=== PATIENT | female | born 1935 | race Caucasian/White ===

== ENCOUNTER 2019-04-22 15:58 | Emergency (ER) | payer OTHER ==
[~2019-04-22] VITALS: Ht 160 cm; Wt 51.6 kg
[~2019-04-22 15:58] MED LIST: AZIT500T PO; BIOT5TAB PO; BUDE10.22 INH; CHOL100012 PO; CRAN1CAP PO; DORZ10DR28 OP; HYDR25TA6 PO; LACT1CAP71 PO; METF500T27 PO; METO50TA82 PO; MICRO-K PO; MV-M1TAB3 PO
[2019-04-22 16:49] VITALS: BP 148/75
[2019-04-22 17:18] LABS: RAPID INFLUENZA A Negative (Negative); RAPID INFLUENZA B Negative (Negative)
== END 2019-04-22 17:50 | disposition home or self-care (01) ==
LOC: ED 17:45
DX: J18.0 Bronchopneumonia, unspecified organism (principal); I10 Essential (primary) hypertension; J44.9 Chronic obstructive pulmonary disease, unspecified; E11.9 Type 2 diabetes mellitus without complications
CPT/HCPCS: 71046; 87081; 87400; 87880; 99284

== ENCOUNTER 2020-06-13 13:27 | Emergency (ER) | payer OTHER ==
[2020-06-13] MEDS ORDERED: SODIUM CHLORIDE FLUSH 10ML SYR IVF ONE (14:00)
[2020-06-13 14:34] LABS: MICROSCOPIC NOT IND
[2020-06-13 14:40] LABS: BASOPHILS % (AUTO) 1 % (0-1); EOSINOPHILS % (AUTO) 5 % (1-7); LYMPHOCYTES % (AUTO) 19 % (22-44); MEAN CORPUSCULAR HEMOGLOBIN 32.7 pg (27.0-34.8); MEAN CORPUSCULAR HGB CONC 34.4 g/dL (32.4-35.8); MEAN PLATELET VOLUME 7.4 fL (7.4-10.4); MONOCYTES % (AUTO) 10 % (2-9); NEUTROPHILS % (AUTO) 65 % (42-75); PLATELET COUNT 270 x10^3/uL (130-400); RED BLOOD COUNT 3.98 x10^6/uL (3.82-5.3); RED CELL DISTRIBUTION WIDTH 13.4 % (9.6-15.2)
[2020-06-13 14:46] LABS: ALANINE AMINOTRANSFERASE 22 U/L (12-78); ALBUMIN 3.9 g/dL (3.4-5.0); ANION GAP 5 mmol/L (5-15); CALCIUM 8.9 mg/dL (8.5-10.1); CHLORIDE 94 mmol/L (98-107); CREATININE 0.79 mg/dL (0.55-1.02)
[2020-06-13 14:48] LABS: ALKALINE PHOSPHATASE 80 U/L (45-117); BILIRUBIN,TOTAL 0.3 mg/dL (0.2-1.0); TOTAL PROTEIN 8.5 g/dL (6.4-8.2)
[2020-06-13 14:50] LABS: MD NO
[2020-06-13] MEDS ORDERED: SODIUM CHLORIDE 0.9% 1,000 ML IV STA (14:53)
--- NOTE | 2020-06-13 15:13 | NUR ---
PT OFF THE FLOOR TO CT
--- NOTE | 2020-06-13 15:28 | NUR ---
UNABLE TO DO CT SCAN ON PT TIANNA BROWN. 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 TALKED ER BOAT MASTER AT 15:25.
[2020-06-13] MEDS ORDERED: SODIUM CHLORIDE 0.9% 1,000 ML IV SCH (15:30)
[2020-06-13 17:23] VITALS: BP 150/60
--- NOTE | 2020-06-13 17:39 | NUR ---
PT REC'VD DISCHARGE INSTRUCTIONS AND EDUCATION. PT HAD NO FURTHER QUESTIONS. PT AMBULATED TO DISCHARGE AREA, STEADY GAIT.
== END 2020-06-13 17:41 | disposition home or self-care (01) ==
LOC: ED 14:54
DX: R10.32 Left lower quadrant pain (principal); R11.0 Nausea; R35.0 Frequency of micturition; I10 Essential (primary) hypertension; E11.9 Type 2 diabetes mellitus without complications; J44.9 Chronic obstructive pulmonary disease, unspecified; M19.90 Unspecified osteoarthritis, unspecified site
CPT/HCPCS: 36415; 80053; 81003; 83690; 85025; 96360; 96361; 99283; J7030

== ENCOUNTER 2020-06-27 11:32 | Emergency (ER) | payer OTHER ==
[~2020-06-27] VITALS: Ht 160 cm; Wt 57.1 kg
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
--- NOTE | 2020-06-27 12:01 | NUR ---
PT TAKEN TO BATHROOM FOR U/A
--- NOTE | 2020-06-27 12:42 | NUR ---
BLADDER SCANNER SHOWED 181 ML
[2020-06-27 12:49] LABS: BASOPHILS % (AUTO) 1 % (0-1); EOSINOPHILS % (AUTO) 2 % (1-7); LYMPHOCYTES % (AUTO) 13 % (22-44); MEAN CORPUSCULAR HEMOGLOBIN 32.9 pg (27.0-34.8); MEAN CORPUSCULAR HGB CONC 34.4 g/dL (32.4-35.8); MONOCYTES % (AUTO) 9 % (2-9); NEUTROPHILS % (AUTO) 75 % (42-75); PLATELET COUNT 235 x10^3/uL (130-400); RED BLOOD COUNT 3.73 x10^6/uL (3.82-5.3); RED CELL DISTRIBUTION WIDTH 13.6 % (9.6-15.2)
[2020-06-27 12:57] LABS: MD NO
[2020-06-27 12:59] LABS: ALANINE AMINOTRANSFERASE 19 U/L (12-78); ALBUMIN 3.6 g/dL (3.4-5.0); ANION GAP 4 mmol/L (5-15); CHLORIDE 96 mmol/L (98-107); CREATININE 0.61 mg/dL (0.55-1.02)
[2020-06-27 13:01] LABS: ALKALINE PHOSPHATASE 65 U/L (45-117); BILIRUBIN,TOTAL 0.4 mg/dL (0.2-1.0); TOTAL PROTEIN 7.7 g/dL (6.4-8.2)
--- NOTE | 2020-06-27 13:09 | NUR ---
PT BACK FROM IMAGING.
--- NOTE | 2020-06-27 13:22 | NUR ---
STRAIGHT CATHETER IN PLACE FOR 181 ML PVR PER MD ORDER
--- NOTE | 2020-06-27 13:43 | NUR ---
300 ML FROM STRAIGHT CATHETER. PT TOLERATED WELL
[2020-06-27 13:48] LABS: MICROSCOPIC INDICATED
[2020-06-27] MEDS ORDERED: FOSFOMYCIN 3 GM PACKET PO ONE (14:00)
[2020-06-27 14:13] VITALS: BP 183/63
== END 2020-06-27 15:02 | disposition home or self-care (01) ==
LOC: ED 14:45
DX: B02.29 Other postherpetic nervous system involvement (principal); E87.1 Hypo-osmolality and hyponatremia; K59.00 Constipation, unspecified; R33.9 Retention of urine, unspecified; R30.0 Dysuria; I10 Essential (primary) hypertension; E11.9 Type 2 diabetes mellitus without complications; J44.9 Chronic obstructive pulmonary disease, unspecified; J45.909 Unspecified asthma, uncomplicated; M19.90 Unspecified osteoarthritis, unspecified site
CPT/HCPCS: 36415; 74176; 80053; 81001; 85025; 87086; 99284

== ENCOUNTER 2020-07-25 09:06 | Inpatient (IN) | payer MEDICARE, OTHER ==
[~2020-07-25] VITALS: Ht 160 cm; Wt 64.8 kg
[2020-07-25] MEDS ORDERED: SODIUM CHLORIDE FLUSH 10ML SYR IVF ONE (10:00)
[2020-07-25] MEDS ORDERED: ONDANSETRON 2MG/ML, 2ML IVPush ONE (10:00)
[2020-07-25] MEDS ORDERED: KETOROLAC 30 MG/1 ML IVPush ONE (10:00)
[2020-07-25] MEDS ORDERED: MORPHINE SULFATE 4 MG/ML, 1ML IVPush PRN (10:00)
[2020-07-25 10:17] LABS: HCT (SEDRATE) 33.8 % (34.6-47.8)
[2020-07-25 10:18] LABS: BASOPHILS % (AUTO) 0 % (0-1); EOSINOPHILS % (AUTO) 1 % (1-7); LYMPHOCYTES % (AUTO) 4 % (22-44); MEAN CORPUSCULAR HEMOGLOBIN 33.1 pg (27.0-34.8); MEAN CORPUSCULAR HGB CONC 34.6 g/dL (32.4-35.8); MEAN PLATELET VOLUME 7.6 fL (7.4-10.4); MONOCYTES % (AUTO) 6 % (2-9); NEUTROPHILS % (AUTO) 90 % (42-75); PLATELET COUNT 175 x10^3/uL (130-400); RED BLOOD COUNT 3.52 x10^6/uL (3.82-5.3); RED CELL DISTRIBUTION WIDTH 14.2 % (9.6-15.2)
[2020-07-25 10:20] LABS: MD NO
[2020-07-25 10:26] LABS: ALANINE AMINOTRANSFERASE 21 U/L (12-78); ALBUMIN 3.3 g/dL (3.4-5.0); ANION GAP 8 mmol/L (5-15); CALCIUM 8.8 mg/dL (8.5-10.1); CHLORIDE 90 mmol/L (98-107)
[2020-07-25 10:29] LABS: ALKALINE PHOSPHATASE 98 U/L (45-117); BILIRUBIN,TOTAL 0.8 mg/dL (0.2-1.0); CREATININE 0.73 mg/dL (0.55-1.02); TOTAL PROTEIN 7.9 g/dL (6.4-8.2)
[2020-07-25] MEDS ORDERED: KETOROLAC 30 MG/1 ML ONE (10:39)
[2020-07-25] MEDS ORDERED: ONDANSETRON 2MG/ML, 2ML ONE (10:39)
[2020-07-25] MEDS ORDERED: MORPHINE SULFATE 4 MG/ML, 1ML ONE (10:39)
[2020-07-25 10:45] LABS: MICROSCOPIC AUTO
--- NOTE | 2020-07-25 10:56 | NUR ---
PT MEDICATED FOR PAIN PER MAR. FAMILY BEDSIDE.
[2020-07-25] MEDS ORDERED: SODIUM CHLORIDE 0.9% 1,000 ML IV ONE ×2 (12:30)
[2020-07-25] MEDS ORDERED: SODIUM CHLORIDE FLUSH 10ML SYR IVF PRN (12:30)
[2020-07-25] MEDS ORDERED: ONDANSETRON 2MG/ML, 2ML IVPush PRN (13:00)
[2020-07-25] MEDS ORDERED: MELATONIN 5 MG TABLET PO PRN (13:00)
[2020-07-25] MEDS ORDERED: hydrALAzine 20 MG/ML, 1ML IVPush PRN (13:00)
[2020-07-25] MEDS ORDERED: DOCUSATE 100 MG CAPSULE PO PRN (13:00)
[2020-07-25] MEDS ORDERED: ACETAMINOPHEN 325 MG TABLET PO PRN (13:00)
--- NOTE | 2020-07-25 13:02 | NUR ---
REPORT TO GRANT RAIN
[2020-07-25] MEDS ORDERED: ASPI81TA45 PO (13:05)
[2020-07-25] MEDS ORDERED: CHOL10003 PO (13:07)
[2020-07-25] MEDS ORDERED: LACT1CAP61 PO (13:08)
[2020-07-25] MEDS ORDERED: GABA300C PO (13:12)
[2020-07-25 13:19] LABS: BASOPHILS % (AUTO) 0 % (0-1); EOSINOPHILS % (AUTO) 0 % (1-7); LYMPHOCYTES % (AUTO) 5 % (22-44); MEAN CORPUSCULAR HEMOGLOBIN 33.3 pg (27.0-34.8); MEAN PLATELET VOLUME 7.5 fL (7.4-10.4); MONOCYTES % (AUTO) 6 % (2-9); NEUTROPHILS % (AUTO) 89 % (42-75); PLATELET COUNT 159 x10^3/uL (130-400); RED BLOOD COUNT 3.36 x10^6/uL (3.82-5.3); RED CELL DISTRIBUTION WIDTH 13.7 % (9.6-15.2)
[2020-07-25 13:20] LABS: MD NO
[2020-07-25 13:29] LABS: CALCIUM 8.3 mg/dL (8.5-10.1); CHLORIDE 90 mmol/L (98-107)
[2020-07-25 13:33] VITALS: BP 140/72
[2020-07-25 13:45] LABS: ANION GAP 8 mmol/L (5-15); CREATININE 0.56 mg/dL (0.55-1.02)
[2020-07-25] MEDS ORDERED: SODIUM CHLORIDE 0.9%, 500ML IVBOLUS ONE (14:00)
[2020-07-25] MEDS: OXYcodone IR 5MG TABLET PO PRN (14:05)
[2020-07-25] MEDS: ENOXAPARIN 40 MG/0.4 ML SQ SCH (14:05)
[2020-07-25 14:38] LABS: CHLORIDE,URINE RANDOM 129 mmol/L; POTASSIUM,URINE RANDOM 65 mmol/L; SODIUM,URINE RANDOM 84 mmol/L
[2020-07-25] MEDS: GABAPENTIN 100 MG CAPSULE PO SCH ×2 (15:40→22:06)
[2020-07-25] MEDS: INSULIN LISPRO 100 UNITS/ML, PEN SQ-INSULIN SCH ×2 (15:43→21:00)
[2020-07-25 17:29] LABS: ANION GAP 6 mmol/L (5-15); CALCIUM 8.1 mg/dL (8.5-10.1); CHLORIDE 92 mmol/L (98-107); CREATININE 0.51 mg/dL (0.55-1.02)
[2020-07-25 19:46] VITALS: BP 115/72
[2020-07-25] MEDS: metFORMIN XR 500 MG TAB.ER.24H PO SCH (22:06)
[2020-07-25] MEDS: SODIUM CHLORIDE FLUSH 10ML SYR IVF SCH (22:06)
[2020-07-25] MEDS: KETOROLAC 30 MG/1 ML IV PRN (22:06)
[2020-07-26 00:17] VITALS: BP 117/64
[2020-07-26 05:45] LABS: BASOPHILS % (AUTO) 1 % (0-1); EOSINOPHILS % (AUTO) 3 % (1-7); LYMPHOCYTES % (AUTO) 7 % (22-44); MEAN CORPUSCULAR HEMOGLOBIN 33.7 pg (27.0-34.8); MEAN CORPUSCULAR HGB CONC 34.8 g/dL (32.4-35.8); MEAN PLATELET VOLUME 7.8 fL (7.4-10.4); MONOCYTES % (AUTO) 10 % (2-9); NEUTROPHILS % (AUTO) 80 % (42-75); PLATELET COUNT 161 x10^3/uL (130-400); RED BLOOD COUNT 3.15 x10^6/uL (3.82-5.3); RED CELL DISTRIBUTION WIDTH 14.1 % (9.6-15.2)
[2020-07-26 05:52] LABS: MD NO
[2020-07-26 05:56] LABS: ANION GAP 7 mmol/L (5-15); CALCIUM 8.4 mg/dL (8.5-10.1); CHLORIDE 92 mmol/L (98-107)
[2020-07-26 05:59] LABS: CREATININE 0.53 mg/dL (0.55-1.02)
[2020-07-26] MEDS: GABAPENTIN 100 MG CAPSULE PO SCH ×4 (06:17→21:13)
[2020-07-26 06:24] VITALS: BP 127/55
[2020-07-26] MEDS: INSULIN LISPRO 100 UNITS/ML, PEN SQ-INSULIN SCH ×4 (07:00→21:00)
[2020-07-26] MEDS ORDERED: ALBUTEROL/IPRATROPIUM 2.5MG/0.5MG, 3 ML HHN SCH (08:30)
[2020-07-26] MEDS: OXYcodone IR 5MG TABLET PO PRN ×2 (08:31→17:10)
[2020-07-26] MEDS: KETOROLAC 30 MG/1 ML IV PRN (08:31)
[2020-07-26] MEDS: LUTEIN HOMEMEDPO SCH (09:00)
[2020-07-26] MEDS: COQ10 HOMEMEDPO SCH (09:00)
[2020-07-26] MEDS: LYCOPENE HOMEMEDPO SCH (09:00)
[2020-07-26] MEDS: MV MN HOMEMEDPO SCH (09:00)
[2020-07-26] MEDS: [UNRECOGNIZED DRUG - OTHER] HOMEMEDPO SCH (09:00)
[2020-07-26] MEDS: DORZOLAMIDE OPHTH 2%, 10ML OP SCH (09:00)
[2020-07-26] MEDS: metFORMIN XR 500 MG TAB.ER.24H PO SCH ×2 (09:54→21:13)
[2020-07-26] MEDS: LACTOBACILLUS CHEW TABLET PO SCH (09:54)
[2020-07-26] MEDS: CHOLECALCIFEROL 1,000 UNIT TABLET PO SCH (09:54)
[2020-07-26] MEDS: METOPROLOL TARTRATE 50 MG TAB PO SCH (09:54)
[2020-07-26] MEDS: methylPREDNISolone SOD SUCC 40 MG/ML IV SCH ×3 (09:55→23:50)
[2020-07-26] MEDS: LIDODERM 5% PATCH TD SCH (09:55)
[2020-07-26] MEDS: SODIUM CHLORIDE FLUSH 10ML SYR IVF SCH ×2 (09:57→11:50)
[2020-07-26] MEDS: LACTULOSE 20 GM/30 ML UDC PO SCH ×2 (10:15→21:00)
[2020-07-26] MEDS: FLUTICASONE/VILANTEROL 100-25MCG/INH INH SCH (10:40)
[2020-07-26] MEDS ORDERED: SODIUM CHLORIDE 0.9%, 500ML IVBOLUS ONE (12:00)
[2020-07-26] MEDS: TIMOLOL OPHTH 0.5%, 5ML OP SCH (12:10)
[2020-07-26 12:16] VITALS: BP 146/80
[2020-07-26] MEDS: CALCIUM/VITAMIN D3 250-125 TABLET PO SCH ×2 (13:41→21:00)
[2020-07-26] MEDS: ENOXAPARIN 40 MG/0.4 ML SQ SCH (13:41)
[2020-07-26] MEDS: ALBUTEROL/IPRATROPIUM 2.5MG/0.5MG, 3 ML NPPB SCH ×2 (15:00→21:00)
[2020-07-26 19:32] VITALS: BP 137/76
[2020-07-27 01:05] VITALS: BP 154/84
[2020-07-27] MEDS: ALBUTEROL/IPRATROPIUM 2.5MG/0.5MG, 3 ML NPPB SCH (02:08)
[2020-07-27 05:34] LABS: CHLORIDE 91 mmol/L (98-107)
[2020-07-27 05:37] LABS: ANION GAP 7 mmol/L (5-15); CALCIUM 9.4 mg/dL (8.5-10.1)
[2020-07-27] MEDS: GABAPENTIN 100 MG CAPSULE PO SCH ×4 (05:53→21:23)
[2020-07-27 07:00] VITALS: BP 134/67
[2020-07-27] MEDS: metFORMIN XR 500 MG TAB.ER.24H PO SCH ×2 (08:14→21:24)
[2020-07-27] MEDS: LACTOBACILLUS CHEW TABLET PO SCH (08:14)
[2020-07-27] MEDS: METOPROLOL TARTRATE 50 MG TAB PO SCH (08:14)
[2020-07-27] MEDS: CHOLECALCIFEROL 1,000 UNIT TABLET PO SCH (08:15)
[2020-07-27] MEDS: methylPREDNISolone SOD SUCC 40 MG/ML IV SCH ×2 (08:15→17:35)
[2020-07-27] MEDS: SODIUM CHLORIDE FLUSH 10ML SYR IVF SCH ×2 (08:15→21:25)
[2020-07-27] MEDS: CALCIUM/VITAMIN D3 250-125 TABLET PO SCH ×2 (08:15→21:24)
[2020-07-27] MEDS: INSULIN LISPRO 100 UNITS/ML, PEN SQ-INSULIN SCH ×4 (08:17→21:27)
[2020-07-27] MEDS: LIDODERM 5% PATCH TD SCH (08:18)
[2020-07-27] MEDS: MV MN HOMEMEDPO SCH (08:22)
[2020-07-27] MEDS: COQ10 HOMEMEDPO SCH (08:22)
[2020-07-27] MEDS: LYCOPENE HOMEMEDPO SCH (08:22)
[2020-07-27] MEDS: LUTEIN HOMEMEDPO SCH (08:22)
[2020-07-27] MEDS: [UNRECOGNIZED DRUG - OTHER] HOMEMEDPO SCH (08:22)
[2020-07-27] MEDS: FLUTICASONE/VILANTEROL 100-25MCG/INH INH SCH (08:55)
[2020-07-27] MEDS ORDERED: ALBUTEROL SULFATE 2.5 MG/3 ML NPPB PRN (09:00)
[2020-07-27] MEDS: DORZOLAMIDE OPHTH 2%, 10ML OP SCH (09:00)
[2020-07-27] MEDS: TIMOLOL OPHTH 0.5%, 5ML OP SCH (09:00)
[2020-07-27 13:05] VITALS: BP 120/72
[2020-07-27] MEDS: ENOXAPARIN 40 MG/0.4 ML SQ SCH (14:34)
[2020-07-27 18:26] VITALS: BP 129/73
[2020-07-28 00:19] VITALS: BP 128/72
[2020-07-28] MEDS: methylPREDNISolone SOD SUCC 40 MG/ML IV SCH ×2 (01:36→08:07)
[2020-07-28 05:26] LABS: ANION GAP 4 mmol/L (5-15); CALCIUM 9.3 mg/dL (8.5-10.1); CHLORIDE 101 mmol/L (98-107)
[2020-07-28 05:27] LABS: CREATININE 0.47 mg/dL (0.55-1.02)
[2020-07-28] MEDS: GABAPENTIN 100 MG CAPSULE PO SCH ×2 (05:59→13:14)
[2020-07-28 07:04] VITALS: BP 123/66
[2020-07-28] MEDS: metFORMIN XR 500 MG TAB.ER.24H PO SCH (08:07)
[2020-07-28] MEDS: CHOLECALCIFEROL 1,000 UNIT TABLET PO SCH (08:07)
[2020-07-28] MEDS: LACTOBACILLUS CHEW TABLET PO SCH (08:07)
[2020-07-28] MEDS: METOPROLOL TARTRATE 50 MG TAB PO SCH (08:08)
[2020-07-28] MEDS: CALCIUM/VITAMIN D3 250-125 TABLET PO SCH (08:08)
[2020-07-28] MEDS: LIDODERM 5% PATCH TD SCH (08:13)
[2020-07-28] MEDS ORDERED: LIDO700A20 TD (08:15)
[2020-07-28] MEDS ORDERED: OXYC5TAB98 PO (08:15)
[2020-07-28] MEDS ORDERED: PRED20TA PO (08:15)
[2020-07-28] MEDS: MV MN HOMEMEDPO SCH (08:22)
[2020-07-28] MEDS: LUTEIN HOMEMEDPO SCH (08:22)
[2020-07-28] MEDS: COQ10 HOMEMEDPO SCH (08:22)
[2020-07-28] MEDS: [UNRECOGNIZED DRUG - OTHER] HOMEMEDPO SCH (08:22)
[2020-07-28] MEDS: SODIUM CHLORIDE FLUSH 10ML SYR IVF SCH (08:22)
[2020-07-28] MEDS: LYCOPENE HOMEMEDPO SCH (08:22)
[2020-07-28] MEDS: INSULIN LISPRO 100 UNITS/ML, PEN SQ-INSULIN SCH ×2 (08:29→11:00)
[2020-07-28] MEDS: FLUTICASONE/VILANTEROL 100-25MCG/INH INH SCH (08:33)
[2020-07-28] MEDS: ENOXAPARIN 40 MG/0.4 ML SQ SCH (13:00)
== END 2020-07-28 14:30 | disposition home health service (06) | DRG 543 ==
LOC: ED 09:50 → EDIP 12:09 → 4NE 13:22 → 3N 07-27 17:44 → DCLOUNGE 07-28 13:48
PROVIDERS: ADMIT Hospitalist; ATTEND Hospitalist
PROC: 0T9B70Z Drainage of Bladder with Drainage Device, Via Natural or Artificial Opening (ICD-10-PCS; principal; 2020-07-25)
DX: M48.54XA Collapsed vertebra, not elsewhere classified, thoracic region, initial encounter for fracture (principal); E87.1 Hypo-osmolality and hyponatremia; J44.1 Chronic obstructive pulmonary disease with (acute) exacerbation; T50.2X5A Adverse effect of carbonic-anhydrase inhibitors, benzothiadiazides and other diuretics, initial encounter; D64.9 Anemia, unspecified; E11.65 Type 2 diabetes mellitus with hyperglycemia; I10 Essential (primary) hypertension; H81.09 Meniere's disease, unspecified ear; H40.9 Unspecified glaucoma; I48.91 Unspecified atrial fibrillation; Z88.6 Allergy status to analgesic agent; Z88.0 Allergy status to penicillin; Z88.8 Allergy status to other drugs, medicaments and biological substances; K59.00 Constipation, unspecified; M48.061 Spinal stenosis, lumbar region without neurogenic claudication; Z80.1 Family history of malignant neoplasm of trachea, bronchus and lung; Z82.3 Family history of stroke; Z83.3 Family history of diabetes mellitus; Z87.440 Personal history of urinary (tract) infections; Z90.710 Acquired absence of both cervix and uterus; M48.04 Spinal stenosis, thoracic region; Y92.89 Other specified places as the place of occurrence of the external cause; Z85.42 Personal history of malignant neoplasm of other parts of uterus
CPT/HCPCS: 36415; 71045; 72148; 74018; 80048; 80053; 81001; 82436; 82570; 82962; 83036; 83735; 84100; 84133; 84300; 84443; 85025; 85651; 93005; 94640; 96374; 96375; G0378; J1650; J1885; J2405; J1815; J2270; J2920; J7040